=== PATIENT | female | born 1940 | race Caucasian/White ===

== ENCOUNTER 2017-07-31 10:53 | Day surgery (SDC) | payer OTHER ==
[2017-07-31] MEDS ORDERED: DIAZEPAM 5 MG TAB PO ONE (11:03)
[2017-07-31] MEDS ORDERED: NS 1,000 ML IV ONE (11:03)
[2017-07-31] MEDS ORDERED: BACITRACIN IRRIGATION/NS 50,000 UNITS/1,000 ML BTL IRR ONE (11:03)
[2017-07-31] MEDS ORDERED: diphenhydrAMINE 25 MG CAP PO ONE (11:03)
--- NOTE | 2017-07-31 11:26 | PDHPUP ---
History & Physical Update H&P update statement: This history and physical update is based on an assessment of the patient which was completed after admission or registration (within 24 hours), but prior to the surgery/procedure. H&P update: H&P reviewed & patient examined, no change in patient's condition since H&P completed
[2017-07-31] MEDS ORDERED: VANCOMYCIN 750 MG in D5W 150 ML IV ONE (11:30)
--- NOTE | 2017-07-31 11:31 | CPEKG ---
Heart Rate: 62 RR Interval: 968 P-R Interval: 172 QRSD Interval: 152 QT Interval: 456 QTC Interval: 463 P [place]: 26 QRS [place]: -83 T Wave [place]: 89 EKG Severity - ABNORMAL ECG - EKG Impression: ATRIAL-SENSED VENTRICULAR-PACED RHYTHM Electronically Signed By: Michael Alcazar 31-Jul-2017 11:42:17
[2017-07-31 11:32] LABS: % IMMATURE GRANULYOCYTES 0.4 % (0.0-1.1); ABSOLUTE IMMATURE GRANULOCYTES 0.03 10^3/uL (0.00-0.10); ADD DIFF? NO; ADD MORPH? NO; ADD SCAN? NO; ATYPICAL LYMPHOCYTE FLAG 0 (0-99); FRAGMENT RBC FLAG 0 (0-99); HEMATOCRIT 39.8 % (38.0-47.0); HEMOGLOBIN 13.3 g/dL (12.6-16.3); LEFT SHIFT FLG 0 (0-99); LIPEMIA HEMOLYSIS FLAG 80 (0-99); MEAN CELL HEMOGLOBIN 33.8 pg (27.9-34.1); MEAN CELL HEMOGLOBIN CONCENTR. 33.4 g/dL (32.4-36.7); MEAN PLATELET VOLUME 10.3 fL (8.7-11.7); PLATELET CLUMPS FLAG 20 (0-99); PLATELET COUNT 202 10^3/uL (150-400); RED BLOOD CELL COUNT 3.94 10^6/uL (4.18-5.33); RED CELL DISTRIBUTION WIDTH 13.3 % (11.5-15.2)
[2017-07-31 11:41] LABS: INR 1.83 (0.83-1.16); PROTIME(PATIENT) 21.2 SEC (12.0-15.0)
[2017-07-31 11:44] LABS: ANION GAP 13 mEq/L (8-16); CALCIUM 9.7 mg/dL (8.5-10.4); CARBON DIOXIDE 23 mEq/l (22-31); CHLORIDE 101 mEq/L (97-110); CREATININE 0.9 mg/dL (0.6-1.0); GLOMERULAR FILTRATION RATE > 60; GLUCOSE 88 mg/dL (70-100); POTASSIUM 4.6 mEq/L (3.5-5.2); SODIUM 137 mEq/L (134-144)
[2017-07-31] MEDS ORDERED: BUPIVACAINE 0.5% 30 ML SDV ONE (11:51)
[2017-07-31] MEDS ORDERED: LIDOCAINE 1% 300 MG/30 ML SDV ONE (11:51)
--- NOTE | 2017-07-31 12:21 | PDANEPAE ---
ANE History of Present Illness 77 year old female w/ non-ischemic cardiomyopathy (Ef=10%) presents for AICD generator change. ANE Past Medical History - Cardiovascular History Hx Hypertension: Yes Hx Arrhythmias: Yes Hx Chest Pain: Yes Hx Coronary Artery / Peripheral Vascular Disease: No Hx CHF / Valvular Disease: Yes Hx Palpitations: Yes Cardiovascular History Comment: Severely depressed EF=10% - Pulmonary History Hx COPD: No Hx Asthma/Reactive Airway Disease: No Hx Recent Upper Respiratory Infection: No Hx Oxygen in Use at Home: No Hx Sleep Apnea: No - Endocrine History Hx Diabetes: No Hypothyroid: No Hyperthyroid: No Obesity: no - Renal History Hx Renal Disorders: No - Liver History Hx Hepatic Disorders: No - Neurological & Psychiatric Hx Hx Neurological and Psychiatric Disorders: No - Cancer History Hx Cancer: No - GI History Hx Gastrointestinal Disorders: No - Chronic Pain History Chronic Pain: Yes (Severe osteoarthritis) ANE Review of Systems Review of Systems: - Exercise capacity Exercise capacity: <4 METS ANE Patient History - Allergies Allergies/Adverse Reactions: amoxicillin [Amoxicillin] Allergy (Severe, Verified 05/20/15 13:32) Rash - Home Medications Home medications: home medication list seen and reviewed Home Medications: Simvastatin [Zocor 40 mg] 40 mg PO DAILY18 06/18/13 [Last Taken 10/04/15] Ascorbic Acid [Vitamin C 500 mg (*)] 500 mg PO DAILY 12/27/14 [Last Taken ] Gabapentin [Neurontin 100 MG (*)] 300 mg PO HS 12/27/14 [Last Taken 10/04/15] Herbals/Supplements -Info Only 1 ea PO DAILY 12/27/14 [Last Taken Unknown] Multivitamins [Multivitamin (*)] 1 each PO DAILY 12/27/14 [Last Taken 10/05/15] [place]-3 Fatty Acids [Fish Oil 1000 mg (*)] 1,000 mg PO BID 12/27/14 [Last Taken 10/05/15 08:00] Warfarin Sodium [Coumadin 1MG (*)] 1 mg PO MWF@1800 12/27/14 [Last Taken 18:00 1MG] Warfarin Sodium [Coumadin 2MG (*)] 2 mg PO SUTUTHSA@1800 12/27/14 [Last Taken ] Aspirin [Aspirin 81mg (*)] 81 mg PO DAILY18 10/05/15 [Last Taken 10/04/15] Calcium Carbonate/Vitamin D3 [Calcium 600-Vit D3 400 Tablet] 1 each PO DAILY@12 10/05/15 [Last Taken 10/05/15] - NPO status NPO Status: no food or drink >8 hours - Anes Hx Anes Hx: no prior problems - Smoking Hx Smoking Status: Former smoker - Alcohol Use Alcohol Use: None - Family Anes Hx Family Anes Hx: neg - N/A ANE Labs/Vital Signs - Labs Result Diagrams: 07/31/17 11:12 07/31/17 11:25 - Vital Signs Vital Signs: reviewed preoperatively; see RN documention for details Height: 149 cm Weight: 45 kg ANE Physical Exam - Airway Neck exam: FROM Mallampati Score: Class 2 Mouth exam: dentures - Pulmonary Pulmonary: no respiratory distress - Cardiovascular Cardiovascular: regular rate and rhythym - ASA Status ASA Status: IV ANE Anesthesia Plan Anesthesia Plan: MAC
[2017-07-31] MEDS ORDERED: LR 500 ML IV PRN (12:23)
[2017-07-31] MEDS ORDERED: fentaNYL 100 MCG/2 ML INJ IVP PRN (12:23)
[2017-07-31] MEDS ORDERED: NALOXONE HCL 0.4 MG/ML INJ IVP PRN (12:23)
[2017-07-31] MEDS ORDERED: MIDAZOLAM 2 MG/2 ML VIAL ONE (12:28)
--- NOTE | 2017-07-31 13:34 | EPPROC ---
Electrophysiology Procedure Note: PROCEDURE PERFORMED: 1. Explantation of an A-V Implantable Cardioverter Defibrillator 2. Implantation of an A-V Implantable Cardioverted Defibrillator INDICATION: ICD Generator at YESENIA Cardiomyopathy PROCEDURE NOTE: Patient presented to the cardiac catheterization laboratory in a fasting, postabsorptive state. Anesthesiologist present, no sedation administered. The left infraclavicular area was prepped and draped in the usual sterile fashion. Lidocaine plus bupivacaine was used for local anesthesia. Using a combination of blunt and sharp dissection and electrocautery, the dissection was carried down to the prepectoral fascia and the existing ICD pocket was opened. The ICD generator was disconnected from the leads and the lead thresholds and impedance were checked. The ICD pocket was copiously irrigated with antibiotic solution. The pocket was again inspected for any bleeding. The leads were attached to the ICD securely. The ICD was inserted into the pocket and secured in place with a nonabsorbable suture. Defibrillation testing was not performed. The ICD pocket was closed in 2 layers with absorbable monocryl sutures and leobardo. Appropriate dressing was applied. The patient left the cardiac catheterization laboratory in stable condition. Serial Numbers: 1. Implanted Device: [employer] [id number] [employer]-D VivaXT 2. Atrial Lead: LADI [id number] 3. Ventricular Lead: LADI [id number] 4. Coronary sinus Lead: T [id number] 5. Removed Device: Stimulation Thresholds & Impedance Measurements: 1. Atrial Lead P 1.5 mV 399 ohm 0.5 V 0.4 ms 2. Ventricular Lead R 10.4 mV 456 ohm HVB 46 ohm HVX 63 ohm 0.75 V 0.4 ms 3. Coronary sinus Lead 627 ohm 1 V 0.4 ms Defibrillation testing: Not done Pacing Parameters: 1. Pacing mode: DDDR 2. Lower rate: 50 ppm 3. Upper tracking rate:130 ppm 4. Upper sensor rate: 130 ppm Tachycardia therapy parameters: VF zone : Detection 188 bpm First therapy 35 Joule Subsequent therapies 35 Joule VT zone : Detection 150 bpm First therapy ATP x 3 Second therapy 35 Joule Subsequent therapies 35 Joule Patient Problems: Problems Problem Status Onset CAP (community acquired pneumonia) Acute Chronic Disease Mgmt/Transitional Care Acute Cardiomyopathy Acute Systolic CHF, acute on chronic Acute
--- NOTE | 2017-07-31 14:36 | POSTANESTH ---
Post Anesthetic Evaluation Cardiovascular Status: Normal, Stable, Similar to Pre-Op Cond Respiratory Status: Normal, Stable, Similar to Pre-op Cond. Level of Consciousness/Mental Status: Can Participate in Eval Pain Control: Adequate, Prn Tx Ordered Nausea/Vomiting Control: Adequate, Prn Tx Ordered Complications Possibly Related to Anesthesia: None Noted
== END 2017-07-31 14:30 | disposition home or self-care (01) ==
LOC: FCATH 10:53
PROVIDERS: ATTEND Internal Medicine Cardiovascular Disease
PROC: 0JH608Z Insertion of Defibrillator Generator into Chest Subcutaneous Tissue and Fascia, Open Approach (ICD-10-PCS; principal; 2017-07-31)
PROC: 0JPT0PZ Removal of Cardiac Rhythm Related Device from Trunk Subcutaneous Tissue and Fascia, Open Approach (ICD-10-PCS; principal; 2017-07-31)
DX: Z45.010 Encounter for checking and testing of cardiac pacemaker pulse generator [battery] (principal); I50.22 Chronic systolic (congestive) heart failure; I42.9 Cardiomyopathy, unspecified; I48.91 Unspecified atrial fibrillation; R53.83 Other fatigue; R06.02 Shortness of breath
CPT/HCPCS: C1882; J2250; J3370

== ENCOUNTER → 2018-08-15 | Outpatient (CLI) | payer OTHER | LOC: CIMAGING 14:33 | PROVIDERS: ATTEND Internal Medicine | DX: M16.0 Bilateral primary osteoarthritis of hip (principal); M53.3 Sacrococcygeal disorders, not elsewhere classified | CPT/HCPCS: 73502-PO ==

== ENCOUNTER → 2019-03-28 | Outpatient (CLI) | payer OTHER ==
[~2019-03-28] MED LIST: DEPO METHYLPREDNISOLONE 40 MG/ML SDV ONE; IOPAMIDOL (ISOVUE 370) 100 ML BTL IV ONE; IOPAMIDOL (ISOVUE-370) 150 ML BTL IV ONE; LIDOCAINE 1% 5 ML SDV ONE; ROPIVACAINE HCL 150 MG/30 ML INJ ONE
== END ==
LOC: FIMAGING 10:16
PROVIDERS: ATTEND Internal Medicine
DX: M16.12 Unilateral primary osteoarthritis, left hip (principal)
CPT/HCPCS: J1030; J2795; Q9967